=== PATIENT | male | born 1945 | race American Indian/Alaskan Native ===

== ENCOUNTER 2017-01-03 10:32 | Inpatient (IN) | payer MEDICARE ==
[2017-01-03] MEDS ORDERED: MORPHINE IV ONE ×2 (11:33→13:02)
[2017-01-03] MEDS ORDERED: ZOFRAN IV ONE (11:34)
[2017-01-03 11:53] LABS: Basophils % (Auto) 0.2 % (0.0-1.8); Hematocrit 47.2 % (35.5-45.6); Hemoglobin 15.4 gm/dl (11.8-15.2); Mean Corpuscular HGB Conc 33 % (32-34); Mean Corpuscular Hemoglobin 31 pg (28-32); Mean Corpuscular Volume 96 fl (84-94); Platelet Count 243 K/mm3 (140-440); Red Cell Distribution Width 14.6 % (13.2-15.2); White Blood Count 18.6 K/mm3 (4.5-11.0)
[2017-01-03 11:58] LABS: Alanine Aminotransferase 28 units/L (7-56); Albumin 3.8 g/dL (3.9-5); Albumin/Globulin Ratio 0.9 %; Alkaline Phosphatase 108 units/L (35-129); Anion Gap 18 mmol/L; BUN/Creatinine Ratio 11.81; Blood Urea Nitrogen 13 mg/dL (9-20); Carbon Dioxide 24 mmol/L (22-30); Chloride 96.2 mmol/L (98-107); Glucose 120 mg/dL (75-100); Lipase 14 units/L (13-60); Potassium 3.7 mmol/L (3.6-5.0); Sodium 134 mmol/L (137-145); Total Protein 8.2 g/dL (6.3-8.2)
[2017-01-03] MEDS ORDERED: NACL 0.9% 1000 ML 1,000 ML IV ONE (12:16)
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
[2017-01-03] MEDS ORDERED: NACL ONE (14:24)
--- NOTE | 2017-01-03 15:17 | Cat Scan Report ---
CT ABDOMEN AND PELVIS WITH CONTRAST INDICATION: Severe abdominal pain. COMPARISON: None similar. FINDINGS: Abdomen and pelvis CT performed following intravenous administration of 100 cc of Omnipaque 300. LUNG BASES: Mild bibasilar atelectasis posteriorly, right greater than left. Mild cardiomegaly. Nonspecific distal esophageal wall prominence/thickening, not excluded for gastroesophageal reflux and/or hiatal hernia, amongst others. ABDOMEN: A 1.7 cm peripherally calcified gallstone noted at the gallbladder neck with diffuse gallbladder wall thickening/moderate surrounding fluid/inflammation that also extends to the mona hepatis and surrounds the proximal duodenum. Another 1.6 cm faintly calcified gallstone also noted at the fundus. Slight central intrahepatic biliary prominence and minimal periportal edema. Slight heterogeneous hepatic enhancement, though without focal suspicious lesions. Patent veins. Spleen, pancreas, adrenals, non-aneurysmal abdominal aorta with few atherosclerotic calcifications and IVC within normal limits. Non-hydronephrotic kidneys with bilateral renal cysts, the largest 3.6 cm on the right inferiorly. No significant adenopathy. Opacified GI tract nonobstructive. Normal appendix. Mild to moderate ascending colon stool admixed with contrast noted. Mild distal descending colon and proximal to mid sigmoid diverticulosis. Small fat-containing umbilical hernia with a transverse neck of 0.8 cm. PELVIS: A 4.4 cm AP x 4.3 cm transverse prostate creates an impression at the bladder base that may be correlated for clinically and with PSA. Few small prostatic calcifications and pelvic phleboliths noted. Otherwise grossly unremarkable urinary bladder and the rectosigmoid. No free fluid or significant adenopathy. Demineralized bones with bilateral hip degenerative changes and right SI joint degenerative bridging. Moderate to severe L5-S1 disc narrowing with vacuum phenomenon. Approximately 6 mm retrolisthesis of L5 over S1 also seen. Additional multilevel spinal degenerative spurring. CONCLUSION: 1. Acute cholecystitis with cholelithiasis, as described. 2. Various other incidental findings, including those at the lung bases, renal cysts, diverticulosis, an enlarged prostate and lower lumbar degenerative changes, amongst others, as detailed above. Thank you for the opportunity to participate in this patient's care.
[2017-01-03] MEDS ORDERED: DILAUDID IV ONE (15:28)
[2017-01-03 15:29] LABS: Bilirubin,Urine NEG (Negative); Blood,Urine MOD (Negative); Ketones,Urine NEG (Negative); Leukocyte Esterase,Urine NEG (Negative); Mucus,Urine FEW /HPF; Nitrite,Urine NEG (Negative); Urobilinogen,Urine < 2.0 mg/dL (<2.0)
[2017-01-03] MEDS ORDERED: LEVAQUIN 750MG/150ML 750 MG/150 ML BAG IV ONE ×2 (15:29→17:04)
[2017-01-03] MEDS ORDERED: DILAUDID ONE (15:29)
[2017-01-03] MEDS ORDERED: TYLENOL PO PRN (16:00)
[2017-01-03] MEDS ORDERED: PROVENTIL IH PRN (16:00)
[2017-01-03] MEDS ORDERED: ZOFRAN IV PRN (16:00)
[2017-01-03] MEDS ORDERED: DULCOLAX PR PRN (16:00)
[2017-01-03] MEDS ORDERED: MILK OF MAGNESIA PO PRN (16:00)
--- NOTE | 2017-01-03 16:06 | History and Physical Report ---
History of Present Illness Chief complaint: My stomach hurts History of present illness: 71 YO Male with HTN, Glaucoma presents to ED for evaluation. Pt states that he has experienced abdominal pain for the past 3 days with worsening xymptoms over the past day. Pt states that pain is 7/10, diffuse, nonradiating, worsened with movement, and relieved somewhat with lying still, and is associated with multiple episodes of nausea and vomiting. Pt has taken pepto bismol without relief. Pt denies fever, chills, CP,Palpitations, syncope, productive cough, BRBPR, or recent ill contacts. Pt seen and evaluated in ED and found to have acute cholecystitis complicated by sepsis. Surgery team consulted. Past History Past Medical History: hypertension Past Surgical History: No surgical history, Other (reviewed) Social history: single, Lives alone. denies: smoking, alcohol abuse, prescription drug abuse, IV drug use Family history: CAD, hypertension Medications and Allergies Allergies Allergy/AdvReac Type Severity Reaction Status Date / Time No Known Allergies Allergy Unverified 01/03/17 11:12 Home Medications Medication Instructions Recorded Confirmed Last Taken Type No Known Home Medications [No 01/03/17 01/03/17 Unknown History Reported Home Medications] Active Meds: Active Medications Acetaminophen (Tylenol) 650 mg PO Q4H PRN PRN Reason: Pain MILD(1-3)/Fever >100.5/VILLALBA Albuterol (Proventil) 2.5 mg IH Q4HRT PRN PRN Reason: Shortness Of Breath Bisacodyl (Dulcolax) 10 mg [place] QDAY PRN PRN Reason: Constipation unrelieved by MOM Levofloxacin/Dextrose (Levaquin 750mg/150ml) 750 mg in 150 mls @ 100 mls/hr IV ONCE ONE Stop: 01/03/17 16:58 Dextrose/Sodium Chloride (D5/0.45ns) 1,000 mls @ 100 mls/hr IV DIRECT FAUSTINO Magnesium Hydroxide (Milk Of Magnesia) 30 ml PO Q4H PRN PRN Reason: Constipation Morphine Sulfate (Morphine) 2 mg IV Q4H PRN PRN Reason: Pain, Moderate (4-6) Ondansetron HCl (Zofran) 4 mg IV Q8H PRN PRN Reason: N/V unrelieved by Reglan Review of Systems Constitutional: no weight loss, no weight gain, no fever, no chills Ears, nose, mouth and throat: no ear pain, no ear discharge, no tinnitis Cardiovascular: no chest pain, no orthopnea, no palpitations Respiratory: no cough, no cough with sputum, no excessive sputum Gastrointestinal: abdominal pain, nausea, vomiting, no coffee ground emesis, no BRBPR, no melena, no hematochezia, no indigestion Genitourinary Male: no dysuria, no hematuria, no flank pain Rectal: no pain, no bleeding Integumentary: no rash, no pruritis, no redness Neurological: no transient paralysis, no paralysis, no weakness Psychiatric: no memory loss, no insomnia Endocrine: no cold intolerance, no heat intolerance, no excessive thirst Hematologic/Lymphatic: no easy bruising, no easy bleeding Allergic/Immunologic: no urticaria, no allergic rhinitis, no wheezing Exam - Constitutional Vitals: Temp Pulse Resp BP Pulse Ox 98.9 F 86 20 169/110 93 01/03/17 10:57 01/03/17 10:57 01/03/17 13:05 01/03/17 15:30 01/03/17 15:30 General appearance: Present: mild distress - EENT Eyes: Present: PERRL ENT: hearing intact, clear oral mucosa - Neck Neck: Present: supple, normal ROM - Respiratory Respiratory effort: normal Respiratory: bilateral: CTA - Cardiovascular Heart Sounds: Present: S1 & S2. Absent: rub, click - Extremities Extremities: pulses symmetrical, No edema Peripheral Pulses: within normal limits - Abdominal General gastrointestinal: Present: soft, tender, non-distended, normal bowel sounds. Absent: hepatomegaly, splenomegaly Localized gastrointestinal: tender: epigastric periumbilical - Integumentary Integumentary: Present: clear, warm, dry - Musculoskeletal Musculoskeletal: gait normal, strength equal bilaterally - Psychiatric Psychiatric: appropriate mood/affect, intact judgment & insight - Neurologic Neurologic: CNII-XII intact, moves all extremities Results - Labs CBC & Chem 7: 01/03/17 11:26 01/03/17 11:26 Labs: Abnormal lab results 01/03/17 01/03/17 01/03/17 Range/Units 11:26 11:26 14:55 WBC 18.6 H (4.5-11.0) K/mm3 Hgb 15.4 H (11.8-15.2) gm/dl Hct 47.2 H (35.5-45.6) % MCV 96 H (84-94) fl Lymph % (Auto) 5.7 L (13.4-35.0) % [place] % (Auto) 8.2 H (0.0-7.3) % Lymph # 1.1 L (1.2-5.4) K/mm3 [place] # 1.5 H (0.0-0.8) K/mm3 Seg Neutrophils % 85.9 H (40.0-70.0) % Seg Neutrophils # 16.0 H (1.8-7.7) K/mm3 Sodium 134 L (137-145) mmol/L Chloride 96.2 L (98-107) mmol/L Glucose 120 H (75-100) mg/dL AST 45 H (5-40) units/L Albumin 3.8 L (3.9-5) g/dL Ur Specific [place] 1.048 H (1.003-1.030) Assessment and Plan - Patient Problems (1) Sepsis Current Visit: Yes Status: Acute Qualifiers: Sepsis type: Escherichia coli Qualified Code(s): A41.51 - Sepsis due to Escherichia coli [E. coli] Plan to address problem: Sepsis Protocol: IV abx, IVF, serial lactate level, monitor uop q shift, blood cultures, (2) Accelerated hypertension Current Visit: Yes Status: Acute Plan to address problem: Hydralazine PRN, monitor bp q shift (3) Glaucoma Current Visit: Yes Status: Chronic Qualifiers: Glaucoma type: G Open angle glaucoma type: O Primary angle closure glaucoma type: P Laterality: L Glaucoma stage: G Plan to address problem: resume current therapy, supportive care. (4) Acute cholecystitis Current Visit: Yes Status: Acute Plan to address problem: IV abx, IVF, supportive care, Surgery consulted in ED (5) DVT prophylaxis Current Visit: Yes Status: Acute
[2017-01-03] MEDS ORDERED: MORPHINE ONE (17:04)
[2017-01-03] MEDS ORDERED: APRESOLINE IV PRN (18:43)
[2017-01-03] MEDS: APRESOLINE IV PRN (19:20)
[2017-01-03] MEDS: D5/0.45NS 1,000 ML IV SCH (19:30)
[2017-01-03] MEDS: MORPHINE IV PRN (21:24)
[2017-01-03] MEDS: FLAGYL 500 MG/100 ML 500 MG/100 ML BAG IV SCH (21:25)
[2017-01-03] MEDS: ZOSYN/NS 4.5GM/100ML 4.5 GM/100 ML VIAL IV SCH (22:56)
[2017-01-04 01:14] LABS: Creatine Kinase MB 3.5 ng/mL (0.0-4.0)
[2017-01-04 01:15] LABS: Creatine Kinase 446 units/L (55-170)
[2017-01-04] MEDS: MORPHINE IV PRN ×5 (02:08→19:59)
[2017-01-04] MEDS: APRESOLINE IV PRN (02:09)
[2017-01-04] MEDS: ZOSYN/NS 4.5GM/100ML 4.5 GM/100 ML VIAL IV SCH ×5 (02:48→22:28)
[2017-01-04] MEDS: FLAGYL 500 MG/100 ML 500 MG/100 ML BAG IV SCH ×5 (02:49→21:28)
--- NOTE | 2017-01-04 10:11 | Progress Note ---
Assessment and Plan Assessment and plan: Sepsis. Continue IV antibiotics, IV fluid. Follow-up blood cultures and lactate levels. Acute cholecystitis. Await HIDA results. Surgical consultation pending. Accelerated hypertension. Continue hydralazine when necessary. Glaucoma. Continue current therapy and supportive care. History Interval history: Patient still complains of epigastric and right upper quadrant abdominal pain. Hospitalist Physical - Constitutional Vitals: Temp Pulse Resp BP Pulse Ox 98.6 F 95 H 17 169/78 99 01/04/17 00:00 01/04/17 02:09 01/04/17 02:08 01/04/17 02:09 01/04/17 08:47 General appearance: Present: mild distress - EENT Eyes: Present: PERRL, EOM intact ENT: hearing intact, clear oral mucosa, dentition normal - Neck Neck: Present: supple, normal ROM - Respiratory Respiratory effort: normal Respiratory: bilateral: CTA - Cardiovascular Rhythm: regular Heart Sounds: Present: S1 & S2. Absent: gallop, rub - Extremities Extremities: no ischemia, No edema, Full ROM - Abdominal General gastrointestinal: soft, tender, non-distended, normal bowel sounds Localized gastrointestinal: tender: RUQ, epigastric periumbilical - Integumentary Integumentary: Present: clear, warm, dry - Neurologic Neurologic: CNII-XII intact, moves all extremities Results - Labs CBC & Chem 7: 01/03/17 11:26 01/03/17 11:26 Labs: Laboratory Last Values WBC 18.6 K/mm3 (4.5-11.0) H 01/03/17 11:26 RBC 4.90 M/mm3 (3.65-5.03) 01/03/17 11:26 Hgb 15.4 gm/dl (11.8-15.2) H 01/03/17 11:26 Hct 47.2 % (35.5-45.6) H 01/03/17 11:26 MCV 96 fl (84-94) H 01/03/17 11:26 MCH 31 pg (28-32) 01/03/17 11:26 MCHC 33 % (32-34) 01/03/17 11:26 RDW 14.6 % (13.2-15.2) 01/03/17 11:26 Plt Count 243 K/mm3 (140-440) 01/03/17 11:26 Lymph % (Auto) 5.7 % (13.4-35.0) L 01/03/17 11:26 [place] % (Auto) 8.2 % (0.0-7.3) H 01/03/17 11:26 Eos % (Auto) 0.0 % (0.0-4.3) 01/03/17 11:26 Baso % (Auto) 0.2 % (0.0-1.8) 01/03/17 11:26 Lymph # 1.1 K/mm3 (1.2-5.4) L 01/03/17 11:26 [place] # 1.5 K/mm3 (0.0-0.8) H 01/03/17 11:26 Eos # 0.0 K/mm3 (0.0-0.4) 01/03/17 11:26 Baso # 0.0 K/mm3 (0.0-0.1) 01/03/17 11:26 Seg Neutrophils % 85.9 % (40.0-70.0) H 01/03/17 11:26 Seg Neutrophils # 16.0 K/mm3 (1.8-7.7) H 01/03/17 11:26 Sodium 134 mmol/L (137-145) L 01/03/17 11:26 Potassium 3.7 mmol/L (3.6-5.0) 01/03/17 11:26 Chloride 96.2 mmol/L (98-107) L 01/03/17 11:26 Carbon Dioxide 24 mmol/L (22-30) 01/03/17 11:26 Anion Gap 18 mmol/L 01/03/17 11:26 BUN 13 mg/dL (9-20) 01/03/17 11:26 Creatinine 1.1 mg/dL (0.8-1.5) 01/03/17 11:26 Estimated GFR > 60 ml/min 01/03/17 11:26 BUN/Creatinine Ratio 11.81 % 01/03/17 11:26 Glucose 120 mg/dL (75-100) H 01/03/17 11:26 Calcium 9.0 mg/dL (8.4-10.2) 01/03/17 11:26 Total Bilirubin 0.80 mg/dL (0.1-1.2) 01/03/17 11:26 AST 45 units/L (5-40) H 01/03/17 11:26 ALT 28 units/L (7-56) 01/03/17 11:26 Alkaline Phosphatase 108 units/L (35-129) 01/03/17 11:26 Total Creatine Kinase 446 units/L (55-170) H 01/04/17 00:12 CK-MB (CK-2) 3.5 ng/mL (0.0-4.0) 01/04/17 00:12 CK-MB (CK-2) Rel Index 0.7 (0-4) 01/04/17 00:12 Troponin T < 0.010 ng/mL (0.00-0.029) 01/04/17 00:12 Total Protein 8.2 g/dL (6.3-8.2) 01/03/17 11:26 Albumin 3.8 g/dL (3.9-5) L 01/03/17 11:26 Albumin/Globulin Ratio 0.9 % 01/03/17 11:26 Lipase 14 units/L (13-60) 01/03/17 11:26 Urine Color Yellow (Yellow) 01/03/17 14:55 Urine Turbidity Clear (Clear) 01/03/17 14:55 Urine pH 6.0 (5.0-7.0) 01/03/17 14:55 Ur Specific [place] 1.048 (1.003-1.030) H 01/03/17 14:55 Urine Protein 100 mg/dl mg/dL (Negative) 01/03/17 14:55 Urine Glucose (UA) 50 mg/dL (Negative) 01/03/17 14:55 Urine Ketones Neg mg/dL (Negative) 01/03/17 14:55 Urine Blood Mod (Negative) 01/03/17 14:55 Urine Nitrite Neg (Negative) 01/03/17 14:55 Urine Bilirubin Neg (Negative) 01/03/17 14:55 Urine Urobilinogen < 2.0 mg/dL (<2.0) 01/03/17 14:55 Ur Leukocyte Esterase Neg (Negative) 01/03/17 14:55 Urine WBC (Auto) 2.0 /HPF (0.0-6.0) 01/03/17 14:55 Urine RBC (Auto) 15.0 /HPF (0.0-6.0) 01/03/17 14:55 Urine Mucus Few /HPF 01/03/17 14:55
--- NOTE | 2017-01-04 11:38 | Nuclear Medicine Report ---
NUCLEAR MEDICINE HEPATOBILIARY SCAN: 01/04/17 07:39 CLINICAL: Abdominal pain. Acute cholecystitis by CT. TECHNIQUE: 5.0mCi technetium 99m Choletec was injected intravenously. Serial images were obtained up to one hour. FINDINGS: Normal activity in the liver, bile ducts and small bowel. No gallbladder activity at one hour. The study was terminated by Dr. Farah and and the patient was taken to surgery. IMPRESSION: Nonvisualization of the gallbladder at one hour consistent with acute cholecystitis.
--- NOTE | 2017-01-04 11:55 | Anesthesia Consultation ---
Anesthesia Consult and Med Hx Date of service: 01/04/17 - Airway Anesthetic Teeth Evaluation: Good ROM Head & Neck: Adequate Mental/Hyoid Distance: Adequate Mallampati Class: Class II Intubation Access Assessment: Probably Good - Pulmonary Exam CTA: Yes - Cardiac Exam Cardiac Exam: RRR - Pre-Operative Health Status ASA Pre-Surgery Classification: ASA2 Proposed Anesthetic Plan: General - Pulmonary Hx Smoking: Yes - Cardiovascular System Hx Hypertension: Yes - Endocrine Hx Non-Insulin Dependent Diabetes: No
--- NOTE | 2017-01-04 11:55 | Anesthesia Day of Surgery ---
Anesthesia Day of Surgery - Day of Surgery Patient Examined: Yes Patient H&P Reviewed: Yes Patient is NPO: Yes
[2017-01-04] MEDS ORDERED: DILAUDID ONE (12:19)
[2017-01-04] MEDS ORDERED: DIPRIVAN 10 MG/ML IV ONE (12:19)
[2017-01-04] MEDS ORDERED: MARCAINE 0.5% 30 ML INFILTRATI ONE (12:43)
[2017-01-04] MEDS ORDERED: XYLOCAINE 1% 20 mL ONE (13:11)
[2017-01-04] MEDS ORDERED: XYLOCAINE 1% 20 mL INFILTRATI ONE (13:13)
[2017-01-04] MEDS ORDERED: NACL 0.9% IR ONE ×2 (13:13)
[2017-01-04] MEDS ORDERED: MARCAINE 0.5% INFILTRATI ONE (13:13)
[2017-01-04] MEDS ORDERED: ZEMURON IV ONE (13:34)
[2017-01-04] MEDS ORDERED: XYLOCAINE MPF 2% ONE (13:34)
[2017-01-04] MEDS ORDERED: QUELICIN ONE (13:34)
[2017-01-04] MEDS ORDERED: BREVIBLOC IV ONE (13:35)
[2017-01-04] MEDS ORDERED: ROBINUL ONE ×2 (13:38→13:45)
[2017-01-04] MEDS ORDERED: ZOFRAN ONE (13:38)
[2017-01-04] MEDS ORDERED: NEOSTIGMINE ONE (13:38)
[2017-01-04] MEDS ORDERED: TORADOL ONE (13:43)
[2017-01-04] MEDS ORDERED: LACTATED RINGERS 1,000 ML ONE (13:54)
[2017-01-04] MEDS: DILAUDID IV PRN ×2 (15:08→15:25)
[2017-01-04] MEDS ORDERED: ZOFRAN IV PRN (15:08)
--- NOTE | 2017-01-04 15:09 | Post Anesthesia Evaluation ---
- Post Anesthesia Evaluation Patient Participated: Yes Airway Patent: Yes Stable Respiratory Function: Yes Nausea/Vomiting: No Temp > 96.8F: Yes Pain Manageable: Yes Adequeate Hydration: Yes Anesthesia Complications: No Block Receding Appropriately: Not Applicable Patient on Ventilator: No
[2017-01-04] MEDS ORDERED: NORMODYNE IV ONE ×2 (15:40→16:54)
[2017-01-04] MEDS: D5/0.45NS 1,000 ML IV SCH (19:03)
--- NOTE | 2017-01-04 21:06 | Operative Report ---
PREOPERATIVE DIAGNOSIS: Acute cholecystitis. POSTOPERATIVE DIAGNOSIS: Acute cholecystitis. SURGERY: Laparoscopic cholecystectomy and conversion to open cholecystectomy. ANESTHESIA: General. BLOOD LOSS: Minimal. WELDER ASSEMBLER: Dr. Trejo. FINDINGS: The patient had very severely inflamed and gangrenous gallbladder with a very thick wall. We had to evacuate the stone from within it to reach the area of the infundibulum only, we did not pursue that further because of concern about the inflammation there, so, we elected just to put a tie in that area and then I left a drain in the area. INDICATION FOR SURGERY: This patient has been having pain to the right upper quadrant ____ nausea and vomiting, apparently he was found to have edematous gallbladder on the CAT scan and the HIDA scan did not show the gallbladder. DESCRIPTION OF PROCEDURE: With the patient in supine position, after cleansing and draping in usual fashion, I made a small incision in the right upper quadrant with the Veress needle. I was able to do CO2 pressure of 15 for which #5 trocar was inserted. Then, another trocar and the local as well was inserted in the infraumbilical area and one in the mid upper abdomen and #10 in the mid upper epigastrium. Lots of inflammatory reaction, the gallbladder was very large. We tried to deflate it. We aspirated about 15 mL out of it and we could not really have a good view of the anatomy in the cystic duct area and the infundibular area. I discussed the case with my nutrition assistant, Dr. Trejo and the recommendation was to go ahead and make it as an open cholecystectomy. So, all the trocars were removed and then a subcostal incision was performed, deep subcutaneous tissue all the way down to fascia, which was incised and the muscle was incised as well. The deep fascia was incised using electrocautery and then we were able to get hold of the gallbladder from its fundus, slowly dissecting it from its bed all the way up to the infundibular area at which point, we could not go beyond that, we were concerned about any injury, so we left a portion of the infundibulum. This was tied with the use of 0 Vicryl. The area was then irrigated with sterile normal saline. We did apply some [place] to the bed to have good hemostasis. Then, the wound was closed after inserting a drain in the subhepatic space. The wound was closed with interrupted stitches of #1 Vicryl all through and through and the skin with otto. We left 2 areas of opening to put a packing of a 2 x 2 ____ the wound area. The drain also was tacked to the skin in the usual fashion using for that purpose #1 Vicryl. A Bandage was applied. The patient was then transferred to the recovery room in good condition. JOB# [id number] ABIOLA/TAMMI
[2017-01-05] MEDS: MORPHINE IV PRN ×3 (00:05→09:46)
[2017-01-05] MEDS: FLAGYL 500 MG/100 ML 500 MG/100 ML BAG IV SCH ×3 (05:24→21:49)
[2017-01-05] MEDS: ZOSYN/NS 4.5GM/100ML 4.5 GM/100 ML VIAL IV SCH ×3 (05:33→21:49)
[2017-01-05] MEDS: APRESOLINE IV PRN ×2 (06:13→12:38)
[2017-01-05] MEDS: D5/0.45NS 1,000 ML IV SCH ×3 (06:15→21:49)
[2017-01-05 08:43] LABS: Hematocrit 36.4 % (35.5-45.6); Hemoglobin 12.4 gm/dl (11.8-15.2); Mean Corpuscular HGB Conc 34 % (32-34); Mean Corpuscular Hemoglobin 32 pg (28-32); Mean Corpuscular Volume 94 fl (84-94); Platelet Count 218 K/mm3 (140-440); Red Blood Count 3.87 M/mm3 (3.65-5.03); Red Cell Distribution Width 14.9 % (13.2-15.2); White Blood Count 10.9 K/mm3 (4.5-11.0)
[2017-01-05 08:55] LABS: Albumin 3.3 g/dL (3.9-5); Albumin/Globulin Ratio 0.9 %; Bilirubin,Direct 1.2 mg/dL (0-0.2); Bilirubin,Indirect 0.7 mg/dL; Bilirubin,Total 1.9 mg/dL (0.1-1.2); Total Protein 6.8 g/dL (6.3-8.2)
--- NOTE | 2017-01-05 09:52 | Progress Note ---
Assessment and Plan Assessment and plan: Sepsis. Continue IV antibiotics, IV fluid. Follow-up blood cultures and lactate levels. Acute cholecystitis/gangrenous gallbladder. Patient status post laparoscopic cholecystectomy and conversion to open cholecystectomy. Surgery following. Continue IV antibiotics and pain control. Accelerated hypertension. Continue hydralazine and increased dose when necessary. Etiology probably secondary to pain. Glaucoma. Continue current therapy and supportive care. History Interval history: Patient still complains of epigastric and right upper quadrant abdominal pain. Hospitalist Physical - Constitutional Vitals: Temp Pulse Resp BP Pulse Ox 98.9 F 128 H 20 181/95 98 01/05/17 08:00 01/05/17 08:00 01/05/17 08:00 01/05/17 08:00 01/05/17 08:00 General appearance: Present: mild distress - EENT Eyes: Present: PERRL, EOM intact ENT: hearing intact, clear oral mucosa, dentition normal - Neck Neck: Present: supple, normal ROM - Respiratory Respiratory effort: normal Respiratory: bilateral: CTA - Cardiovascular Rhythm: regular Heart Sounds: Present: S1 & S2. Absent: gallop, rub - Extremities Extremities: no ischemia, No edema, Full ROM - Abdominal General gastrointestinal: soft, non-tender, non-distended, normal bowel sounds - Integumentary Integumentary: Present: clear, warm, dry - Neurologic Neurologic: CNII-XII intact, moves all extremities Results - Labs CBC & Chem 7: 01/05/17 08:16 01/03/17 11:26 Labs: Laboratory Last Values WBC 10.9 K/mm3 (4.5-11.0) 01/05/17 08:16 RBC 3.87 M/mm3 (3.65-5.03) 01/05/17 08:16 Hgb 12.4 gm/dl (11.8-15.2) D 01/05/17 08:16 Hct 36.4 % (35.5-45.6) D 01/05/17 08:16 MCV 94 fl (84-94) 01/05/17 08:16 MCH 32 pg (28-32) 01/05/17 08:16 MCHC 34 % (32-34) 01/05/17 08:16 RDW 14.9 % (13.2-15.2) 01/05/17 08:16 Plt Count 218 K/mm3 (140-440) 01/05/17 08:16 Lymph % (Auto) 5.7 % (13.4-35.0) L 01/03/17 11:26 [place] % (Auto) 8.2 % (0.0-7.3) H 01/03/17 11:26 Eos % (Auto) 0.0 % (0.0-4.3) 01/03/17 11:26 Baso % (Auto) 0.2 % (0.0-1.8) 01/03/17 11:26 Lymph # 1.1 K/mm3 (1.2-5.4) L 01/03/17 11:26 [place] # 1.5 K/mm3 (0.0-0.8) H 01/03/17 11:26 Eos # 0.0 K/mm3 (0.0-0.4) 01/03/17 11:26 Baso # 0.0 K/mm3 (0.0-0.1) 01/03/17 11:26 Seg Neutrophils % 85.9 % (40.0-70.0) H 01/03/17 11:26 Seg Neutrophils # 16.0 K/mm3 (1.8-7.7) H 01/03/17 11:26 Sodium 134 mmol/L (137-145) L 01/03/17 11:26 Potassium 3.7 mmol/L (3.6-5.0) 01/03/17 11:26 Chloride 96.2 mmol/L (98-107) L 01/03/17 11:26 Carbon Dioxide 24 mmol/L (22-30) 01/03/17 11:26 Anion Gap 18 mmol/L 01/03/17 11:26 BUN 13 mg/dL (9-20) 01/03/17 11:26 Creatinine 1.1 mg/dL (0.8-1.5) 01/03/17 11:26 Estimated GFR > 60 ml/min 01/03/17 11:26 BUN/Creatinine Ratio 11.81 % 01/03/17 11:26 Glucose 120 mg/dL (75-100) H 01/03/17 11:26 Calcium 9.0 mg/dL (8.4-10.2) 01/03/17 11:26 Total Bilirubin 1.90 mg/dL (0.1-1.2) H 01/05/17 08:16 Direct Bilirubin 1.2 mg/dL (0-0.2) H 01/05/17 08:16 Indirect Bilirubin 0.7 mg/dL 01/05/17 08:16 AST 52 units/L (5-40) H 01/05/17 08:16 ALT 36 units/L (7-56) 01/05/17 08:16 Alkaline Phosphatase 124 units/L (35-129) 01/05/17 08:16 Total Creatine Kinase 446 units/L (55-170) H 01/04/17 00:12 CK-MB (CK-2) 3.5 ng/mL (0.0-4.0) 01/04/17 00:12 CK-MB (CK-2) Rel Index 0.7 (0-4) 01/04/17 00:12 Troponin T < 0.010 ng/mL (0.00-0.029) 01/04/17 00:12 Total Protein 6.8 g/dL (6.3-8.2) 01/05/17 08:16 Albumin 3.3 g/dL (3.9-5) L 01/05/17 08:16 Albumin/Globulin Ratio 0.9 % 01/05/17 08:16 Lipase 14 units/L (13-60) 01/03/17 11:26 Urine Color Yellow (Yellow) 01/03/17 14:55 Urine Turbidity Clear (Clear) 01/03/17 14:55 Urine pH 6.0 (5.0-7.0) 01/03/17 14:55 Ur Specific [place] 1.048 (1.003-1.030) H 01/03/17 14:55 Urine Protein 100 mg/dl mg/dL (Negative) 01/03/17 14:55 Urine Glucose (UA) 50 mg/dL (Negative) 01/03/17 14:55 Urine Ketones Neg mg/dL (Negative) 01/03/17 14:55 Urine Blood Mod (Negative) 01/03/17 14:55 Urine Nitrite Neg (Negative) 01/03/17 14:55 Urine Bilirubin Neg (Negative) 01/03/17 14:55 Urine Urobilinogen < 2.0 mg/dL (<2.0) 01/03/17 14:55 Ur Leukocyte Esterase Neg (Negative) 01/03/17 14:55 Urine WBC (Auto) 2.0 /HPF (0.0-6.0) 01/03/17 14:55 Urine RBC (Auto) 15.0 /HPF (0.0-6.0) 01/03/17 14:55 Urine Mucus Few /HPF 01/03/17 14:55
[2017-01-06] MEDS: APRESOLINE IV PRN ×3 (00:29→10:45)
[2017-01-06] MEDS: D5/0.45NS 1,000 ML IV SCH ×2 (05:59→21:20)
[2017-01-06] MEDS: ZOSYN/NS 4.5GM/100ML 4.5 GM/100 ML VIAL IV SCH ×3 (05:59→21:13)
[2017-01-06] MEDS: FLAGYL 500 MG/100 ML 500 MG/100 ML BAG IV SCH ×3 (06:00→21:13)
[2017-01-06] MEDS: MORPHINE IV PRN ×3 (07:30→23:15)
--- NOTE | 2017-01-06 07:37 | Admit Criteria Form ---
Admission Criteria Documentation: ABDOMINAL PAIN Clinical Indications for Admission to Inpatient Care ( [place]/check or initial the applicable condition/criteria): Admission is indicated for ANY ONE of the following (1)(2)(3)(4)(5)(6): [ ]I. Surgery needed that cannot be performed on ambulatory basis [ ]II. Peritoneal signs present (eg, rebound tenderness, rigidity) [ ]III. Evaluation requires patient to not eat or drink for extended period ( eg, more than 24 hours). [X ]IV. Inpatient admission required[B] rather than observation care (see Abdominal Pain: Observation Care guideline as appropriate) because of ANY ONE of the following(7)(8)(9): [ ] a) Hemodynamic instability [ ]b) Severe pain requiring acute inpatient management [X ]c) Identification of etiology or finding that requires inpatient care (eg, aortic dissection, free air,bowel ischemia)(10) [ ]d) Absent bowel sounds with complete ileus (11) [ ]e) Signs of intestinal obstruction[C] [ ]f) Suspected toxic megacolon [ ]g) Severe electrolyte abnormalities requiring inpatient care [ ]h) High fever or infection requiring inpatient admission as indicated by ANY ONE of the following (12)(13): [ ]i) Appropriate outpatient or observation care antimicrobial treatment unavailable, not effective, or not feasible [ ]ii) Documented bacteremia [ ]iii) Temperature greater than 104.9 degrees F (40.5 degrees C) (oral) [ ]iv) Temperature greater than 103.1 degrees F (39.5 degrees C) ( oral) or less than 96.8 degrees F (36 degrees C) (rectal) that does not respond to all emergency treatment measures [ ]i) IV fluid required rather than oral rehydration to replace significant ongoing (eg, for greater than 24 hours) losses (greater than 3 L/m2 per day)(14)(15) [ ]j) Percutaneous or open drainage (eg, abscess, biliary tract) procedures [ ]k) Parenteral nutrition regimen that must be implemented on inpatient basis [ ]l) Other condition, treatment, or monitoring requiring inpatient admission Extended stay beyond goal length of stay may be needed for (1)(3)(4)(10)(16): [ ]a) Surgery (e.g., colectomy, revascularization procedure) [ ]b) Persistent abdominal pain with suspected intra-abdominal process [ ]c) Diagnosed condition requiring continued stay (e.g., pancreatitis, complicated diverticulitis) The original [facility] opendorse content created by [facility] has been revised. The portions of the content which have been revised are identified through the use of italic text or in bold, and [facility] has neither reviewed nor approved the modified material.All other unmodified content is copyright [facility]. Please see references footnoted in the original [facility] edition 2017
[2017-01-06 09:38] LABS: Albumin 2.9 g/dL (3.9-5); Albumin/Globulin Ratio 0.8 %; Bilirubin,Direct 0.6 mg/dL (0-0.2); Bilirubin,Indirect 0.7 mg/dL; Bilirubin,Total 1.3 mg/dL (0.1-1.2); Total Protein 6.4 g/dL (6.3-8.2)
--- NOTE | 2017-01-06 10:24 | Progress Note ---
Assessment and Plan Assessment and plan: Sepsis. Continue IV antibiotics, IV fluid. Follow-up blood cultures. Acute cholecystitis/gangrenous gallbladder. Patient status post laparoscopic cholecystectomy and conversion to open cholecystectomy. Surgery following. Continue IV antibiotics and pain control. Accelerated hypertension. Start labetalol twice a day. Etiology probably secondary to pain. Glaucoma. Continue current therapy and supportive care. History Interval history: Patient still complains of epigastric and right upper quadrant abdominal pain but improved. Patient tolerating clear liquid diet. Hospitalist Physical - Constitutional Vitals: Temp Pulse Resp BP Pulse Ox 97 F L 112 H 22 176/92 97 01/06/17 07:00 01/06/17 07:00 01/06/17 07:00 01/06/17 07:00 01/06/17 07:00 General appearance: Present: no acute distress - EENT Eyes: Present: PERRL, EOM intact ENT: hearing intact, clear oral mucosa, dentition normal - Neck Neck: Present: supple, normal ROM - Respiratory Respiratory effort: normal Respiratory: bilateral: CTA - Cardiovascular Rhythm: regular Heart Sounds: Present: S1 & S2. Absent: gallop, rub - Extremities Extremities: no ischemia, No edema, Full ROM - Abdominal General gastrointestinal: soft, non-tender, non-distended, normal bowel sounds - Integumentary Integumentary: Present: clear, warm, dry - Neurologic Neurologic: CNII-XII intact, moves all extremities Results - Labs CBC & Chem 7: 01/05/17 08:16 01/03/17 11:26 Labs: Laboratory Last Values WBC 10.9 K/mm3 (4.5-11.0) 01/05/17 08:16 RBC 3.87 M/mm3 (3.65-5.03) 01/05/17 08:16 Hgb 12.4 gm/dl (11.8-15.2) D 01/05/17 08:16 Hct 36.4 % (35.5-45.6) D 01/05/17 08:16 MCV 94 fl (84-94) 01/05/17 08:16 MCH 32 pg (28-32) 01/05/17 08:16 MCHC 34 % (32-34) 01/05/17 08:16 RDW 14.9 % (13.2-15.2) 01/05/17 08:16 Plt Count 218 K/mm3 (140-440) 01/05/17 08:16 Lymph % (Auto) 5.7 % (13.4-35.0) L 01/03/17 11:26 [place] % (Auto) 8.2 % (0.0-7.3) H 01/03/17 11:26 Eos % (Auto) 0.0 % (0.0-4.3) 01/03/17 11:26 Baso % (Auto) 0.2 % (0.0-1.8) 01/03/17 11:26 Lymph # 1.1 K/mm3 (1.2-5.4) L 01/03/17 11:26 [place] # 1.5 K/mm3 (0.0-0.8) H 01/03/17 11:26 Eos # 0.0 K/mm3 (0.0-0.4) 01/03/17 11:26 Baso # 0.0 K/mm3 (0.0-0.1) 01/03/17 11:26 Seg Neutrophils % 85.9 % (40.0-70.0) H 01/03/17 11:26 Seg Neutrophils # 16.0 K/mm3 (1.8-7.7) H 01/03/17 11:26 Sodium 134 mmol/L (137-145) L 01/03/17 11:26 Potassium 3.7 mmol/L (3.6-5.0) 01/03/17 11:26 Chloride 96.2 mmol/L (98-107) L 01/03/17 11:26 Carbon Dioxide 24 mmol/L (22-30) 01/03/17 11:26 Anion Gap 18 mmol/L 01/03/17 11:26 BUN 13 mg/dL (9-20) 01/03/17 11:26 Creatinine 1.1 mg/dL (0.8-1.5) 01/03/17 11:26 Estimated GFR > 60 ml/min 01/03/17 11:26 BUN/Creatinine Ratio 11.81 % 01/03/17 11:26 Glucose 120 mg/dL (75-100) H 01/03/17 11:26 Calcium 9.0 mg/dL (8.4-10.2) 01/03/17 11:26 Total Bilirubin 1.30 mg/dL (0.1-1.2) H 01/06/17 08:37 Direct Bilirubin 0.6 mg/dL (0-0.2) H 01/06/17 08:37 Indirect Bilirubin 0.7 mg/dL 01/06/17 08:37 AST 42 units/L (5-40) H 01/06/17 08:37 ALT 28 units/L (7-56) 01/06/17 08:37 Alkaline Phosphatase 110 units/L (35-129) 01/06/17 08:37 Total Creatine Kinase 446 units/L (55-170) H 01/04/17 00:12 CK-MB (CK-2) 3.5 ng/mL (0.0-4.0) 01/04/17 00:12 CK-MB (CK-2) Rel Index 0.7 (0-4) 01/04/17 00:12 Troponin T < 0.010 ng/mL (0.00-0.029) 01/04/17 00:12 Total Protein 6.4 g/dL (6.3-8.2) 01/06/17 08:37 Albumin 2.9 g/dL (3.9-5) L 01/06/17 08:37 Albumin/Globulin Ratio 0.8 % 01/06/17 08:37 Lipase 14 units/L (13-60) 01/03/17 11:26 Urine Color Yellow (Yellow) 01/03/17 14:55 Urine Turbidity Clear (Clear) 01/03/17 14:55 Urine pH 6.0 (5.0-7.0) 01/03/17 14:55 Ur Specific [place] 1.048 (1.003-1.030) H 01/03/17 14:55 Urine Protein 100 mg/dl mg/dL (Negative) 01/03/17 14:55 Urine Glucose (UA) 50 mg/dL (Negative) 01/03/17 14:55 Urine Ketones Neg mg/dL (Negative) 01/03/17 14:55 Urine Blood Mod (Negative) 01/03/17 14:55 Urine Nitrite Neg (Negative) 01/03/17 14:55 Urine Bilirubin Neg (Negative) 01/03/17 14:55 Urine Urobilinogen < 2.0 mg/dL (<2.0) 01/03/17 14:55 Ur Leukocyte Esterase Neg (Negative) 01/03/17 14:55 Urine WBC (Auto) 2.0 /HPF (0.0-6.0) 01/03/17 14:55 Urine RBC (Auto) 15.0 /HPF (0.0-6.0) 01/03/17 14:55 Urine Mucus Few /HPF 01/03/17 14:55
--- NOTE | 2017-01-06 15:46 | Progress Note ---
Subjective Patient Reports: Positive: feels better, flatus Narrative: doing fine liver F test improving , will start PO , Objective Vital Signs - 12hr 01/06/17 01/06/17 01/06/17 06:18 07:00 10:45 Temperature 98.2 F 97 F L Pulse Rate 117 H 112 H Respiratory 18 22 Rate Blood Pressure 188/103 176/92 176/92 O2 Sat by Pulse 100 97 Oximetry 01/06/17 01/06/17 01/06/17 11:54 14:37 15:00 Temperature 98.8 F 99 F Pulse Rate 120 H 104 H Respiratory 24 20 16 Rate Blood Pressure 166/83 164/65 O2 Sat by Pulse Oximetry - Labs 01/05/17 08:16 01/03/17 11:26 Diabetes panel 01/06/17 Range/Units 08:37 AST 42 H (5-40) units/L ALT 28 (7-56) units/L Alkaline Phosphatase 110 (35-129) units/L Total Protein 6.4 (6.3-8.2) g/dL Albumin 2.9 L (3.9-5) g/dL Calcium panel 01/06/17 Range/Units 08:37 Albumin 2.9 L (3.9-5) g/dL Adrenal panel 01/06/17 Range/Units 08:37 Total Bilirubin 1.30 H (0.1-1.2) mg/dL AST 42 H (5-40) units/L ALT 28 (7-56) units/L Alkaline Phosphatase 110 (35-129) units/L Total Protein 6.4 (6.3-8.2) g/dL Albumin 2.9 L (3.9-5) g/dL
[2017-01-06] MEDS ORDERED: NORMODYNE PO SCH (22:00)
[2017-01-07] MEDS: D5/0.45NS 1,000 ML IV SCH (00:19)
[2017-01-07] MEDS: FLAGYL 500 MG/100 ML 500 MG/100 ML BAG IV SCH (07:29)
[2017-01-07] MEDS: MORPHINE IV PRN (07:30)
[2017-01-07] MEDS: ZOSYN/NS 4.5GM/100ML 4.5 GM/100 ML VIAL IV SCH ×2 (07:30→14:04)
--- NOTE | 2017-01-07 08:59 | Progress Note ---
Assessment and Plan Assessment and plan: Sepsis. Continue IV antibiotics, IV fluid. Follow-up blood cultures. Blood cultures negative 72 hours. Acute cholecystitis/gangrenous gallbladder. Patient status post laparoscopic cholecystectomy and conversion to open cholecystectomy. Surgery following. Continue IV antibiotics and pain control. Accelerated hypertension. Increase labetalol to 400 mg twice a day. Glaucoma. Continue current therapy and supportive care. History Interval history: Patient still complains of epigastric and right upper quadrant abdominal pain but improved. Patient tolerating diet. + flatus Hospitalist Physical - Constitutional Vitals: Temp Pulse Resp BP Pulse Ox 97 F L 74 16 161/94 98 01/07/17 07:00 01/07/17 07:00 01/07/17 07:00 01/07/17 07:00 01/07/17 07:00 General appearance: Present: no acute distress - EENT Eyes: Present: PERRL, EOM intact ENT: hearing intact, clear oral mucosa, dentition normal - Neck Neck: Present: supple, normal ROM - Respiratory Respiratory effort: normal Respiratory: bilateral: CTA - Cardiovascular Rhythm: regular Heart Sounds: Present: S1 & S2. Absent: gallop, rub - Extremities Extremities: no ischemia, No edema, Full ROM - Abdominal General gastrointestinal: soft, non-tender, non-distended, normal bowel sounds - Integumentary Integumentary: Present: clear, warm, dry - Neurologic Neurologic: CNII-XII intact, moves all extremities Results - Labs CBC & Chem 7: 01/05/17 08:16 01/03/17 11:26 Labs: Laboratory Last Values WBC 10.9 K/mm3 (4.5-11.0) 01/05/17 08:16 RBC 3.87 M/mm3 (3.65-5.03) 01/05/17 08:16 Hgb 12.4 gm/dl (11.8-15.2) D 01/05/17 08:16 Hct 36.4 % (35.5-45.6) D 01/05/17 08:16 MCV 94 fl (84-94) 01/05/17 08:16 MCH 32 pg (28-32) 01/05/17 08:16 MCHC 34 % (32-34) 01/05/17 08:16 RDW 14.9 % (13.2-15.2) 01/05/17 08:16 Plt Count 218 K/mm3 (140-440) 01/05/17 08:16 Lymph % (Auto) 5.7 % (13.4-35.0) L 01/03/17 11:26 [place] % (Auto) 8.2 % (0.0-7.3) H 01/03/17 11:26 Eos % (Auto) 0.0 % (0.0-4.3) 01/03/17 11:26 Baso % (Auto) 0.2 % (0.0-1.8) 01/03/17 11:26 Lymph # 1.1 K/mm3 (1.2-5.4) L 01/03/17 11:26 [place] # 1.5 K/mm3 (0.0-0.8) H 01/03/17 11:26 Eos # 0.0 K/mm3 (0.0-0.4) 01/03/17 11:26 Baso # 0.0 K/mm3 (0.0-0.1) 01/03/17 11:26 Seg Neutrophils % 85.9 % (40.0-70.0) H 01/03/17 11:26 Seg Neutrophils # 16.0 K/mm3 (1.8-7.7) H 01/03/17 11:26 Sodium 134 mmol/L (137-145) L 01/03/17 11:26 Potassium 3.7 mmol/L (3.6-5.0) 01/03/17 11:26 Chloride 96.2 mmol/L (98-107) L 01/03/17 11:26 Carbon Dioxide 24 mmol/L (22-30) 01/03/17 11:26 Anion Gap 18 mmol/L 01/03/17 11:26 BUN 13 mg/dL (9-20) 01/03/17 11:26 Creatinine 1.1 mg/dL (0.8-1.5) 01/03/17 11:26 Estimated GFR > 60 ml/min 01/03/17 11:26 BUN/Creatinine Ratio 11.81 % 01/03/17 11:26 Glucose 120 mg/dL (75-100) H 01/03/17 11:26 Calcium 9.0 mg/dL (8.4-10.2) 01/03/17 11:26 Total Bilirubin 1.30 mg/dL (0.1-1.2) H 01/06/17 08:37 Direct Bilirubin 0.6 mg/dL (0-0.2) H 01/06/17 08:37 Indirect Bilirubin 0.7 mg/dL 01/06/17 08:37 AST 42 units/L (5-40) H 01/06/17 08:37 ALT 28 units/L (7-56) 01/06/17 08:37 Alkaline Phosphatase 110 units/L (35-129) 01/06/17 08:37 Total Creatine Kinase 446 units/L (55-170) H 01/04/17 00:12 CK-MB (CK-2) 3.5 ng/mL (0.0-4.0) 01/04/17 00:12 CK-MB (CK-2) Rel Index 0.7 (0-4) 01/04/17 00:12 Troponin T < 0.010 ng/mL (0.00-0.029) 01/04/17 00:12 Total Protein 6.4 g/dL (6.3-8.2) 01/06/17 08:37 Albumin 2.9 g/dL (3.9-5) L 01/06/17 08:37 Albumin/Globulin Ratio 0.8 % 01/06/17 08:37 Lipase 14 units/L (13-60) 01/03/17 11:26 Urine Color Yellow (Yellow) 01/03/17 14:55 Urine Turbidity Clear (Clear) 01/03/17 14:55 Urine pH 6.0 (5.0-7.0) 01/03/17 14:55 Ur Specific [place] 1.048 (1.003-1.030) H 01/03/17 14:55 Urine Protein 100 mg/dl mg/dL (Negative) 01/03/17 14:55 Urine Glucose (UA) 50 mg/dL (Negative) 01/03/17 14:55 Urine Ketones Neg mg/dL (Negative) 01/03/17 14:55 Urine Blood Mod (Negative) 01/03/17 14:55 Urine Nitrite Neg (Negative) 01/03/17 14:55 Urine Bilirubin Neg (Negative) 01/03/17 14:55 Urine Urobilinogen < 2.0 mg/dL (<2.0) 01/03/17 14:55 Ur Leukocyte Esterase Neg (Negative) 01/03/17 14:55 Urine WBC (Auto) 2.0 /HPF (0.0-6.0) 01/03/17 14:55 Urine RBC (Auto) 15.0 /HPF (0.0-6.0) 01/03/17 14:55 Urine Mucus Few /HPF 01/03/17 14:55
[2017-01-07] MEDS ORDERED: MILK OF MAGNESIA PO ONE (10:00)
[2017-01-07] MEDS ORDERED: NORMODYNE PO SCH (10:00)
--- NOTE | 2017-01-07 14:13 | Progress Note ---
Subjective Patient Reports: Positive: feels better, flatus, bowel movement Narrative: feels much better good BM woundOK home today on leviquin Objective Vital Signs - 12hr 01/07/17 01/07/17 07:00 12:00 Temperature 97 F L 98 F Pulse Rate 74 70 Respiratory 16 16 Rate Blood Pressure 161/94 133/77 O2 Sat by Pulse 98 Oximetry - Labs 01/05/17 08:16 01/03/17 11:26
[2017-01-07 16:54] VITALS: BP 144/86
--- NOTE | 2017-01-07 23:24 | Discharge Summary ---
HOSPITAL COURSE: This man was seen apparently in the Emergency Room upon his admission about 4 days ago because of pain to the right upper quadrant, nausea and vomiting, was found to have a gallbladder disease with stones. He was taken to the operating room where he underwent laparoscopic cholecystectomy then was this converted to open cholecystectomy. This was 3 days ago. He did extremely well. At the present time, his wound is clean and he is having good bowel movements. No nausea, no vomiting. At this point today on 01/07/2017, he can go home, see me in my office in one week and to be on low-fat diet. I gave him a prescription for Vicodin 5/325 mg to be taken every 4 hours p.r.n. for pain. JOB# [id number] ABIOLA/TAMMI
--- NOTE | 2017-01-09 03:20 | Consultation ---
HISTORY OF PRESENT ILLNESS: This patient was seen last Friday. He was referred by Dr. Chaudhari because of severe pain to the right upper quadrant of 2 days' duration. He had nausea and he had vomiting. These symptoms worsened and he presented to the Emergency Room for evaluation. He did take some Pepto-Bismol. This did not help him and he had a CAT scan that showed evidence of severely inflamed ____ HIDA scan. PHYSICAL EXAMINATION: GENERAL: A thin, slim black male who is in no distress. He is short of seeing, blind. HEAD AND NECK: Negative. Neck is supple. CHEST: Essentially clear. HEART: Sound normal. ABDOMEN: Showed severe tenderness in the right upper mid abdomen. EXTREMITIES: Showed no significant edema. IMPRESSION AND PLAN: Abdominal pain with gallbladder disease as seen on the CAT scan with cholelithiasis. I believe this needs to be addressed surgically. I did discuss the case with Dr. Chaudhari at that point. JOB# [id number] ABIOLA/TAMMI
== END 2017-01-07 17:30 | disposition home or self-care (01) | DRG 854 ==
LOC: ED 10:32 → 3A 16:01 → 2B-SURG 01-04 18:33
PROVIDERS: ADMIT Internal Medicine; ATTEND Hospitalist
PROC: 0FT40ZZ Resection of Gallbladder, Open Approach (ICD-10-PCS; principal; 2017-01-04)
PROC: 0FJ44ZZ Inspection of Gallbladder, Percutaneous Endoscopic Approach (ICD-10-PCS; 2017-01-04)
DX: A41.51 Sepsis due to Escherichia coli [E. coli] (principal); K81.0 Acute cholecystitis; I10 Essential (primary) hypertension; H40.9 Unspecified glaucoma; K59.00 Constipation, unspecified; Z87.891 Personal history of nicotine dependence; Z82.49 Family history of ischemic heart disease and other diseases of the circulatory system
CPT/HCPCS: 36415; 74177; 78226; 80053; 80074; 81001; 82550; 82553; 83690; 84484; 85025; 85027; 87040; 88304; 93005; 93010; 96374; 96375; 96376; A4217; A9537; J0330; J0360; J1170; J1885; J1956; J2270; J2405; J2543; J2704; J2710; J7030; J7120; Q9967